=== PATIENT | male | born 1955 | race Caucasian/White ===

== ENCOUNTER 2021-10-07 14:53 | Outpatient (CLI) | payer MEDICARE ==
[2021-10-07 16:08] LABS: Hemoglobin 13.2 g/dL (13.5-17.5); Mean Corpuscular HGB CONC 33.9 g/dL (32.0-36.0); Mean Corpuscular Hemoglobin 30.1 pg (27.0-33.0); Mean Corpuscular Volume 88.8 fl (81.2-95.1); Mean Platelet Volume 9.4 fl (7.4-10.4); Platelet Count 235 10x3/uL (150-450); Red Blood Cell (RBC) Count 4.38 10x6/uL (4.32-5.72); White Blood Cell (WBC) Count 6.8 10x3/uL (3.5-10.5)
[2021-10-07 16:20] LABS: INR-International Normal Ratio 0.9; PTT 28.8 sec (22.0-33.0); Prothrombin Time 10.3 sec (9.5-12.1)
[2021-10-07 16:27] LABS: Anion Gap 15 mmol/L (10-20); BUN (Urea Nitrogen) 17 mg/dL (8.4-25.7); Calc. Creatinine Clearance 0 mL/min (70-130); Calcium 8.9 mg/dL (7.8-10.44); Carbon Dioxide 24 mmol/L (23-31); Chloride 107 mmol/L (98-107); Glucose 134 mg/dL (80-115); Potassium 4.2 mmol/L (3.5-5.1); Sodium 142 mmol/L (136-145)
== END 2021-10-07 14:54 | disposition home or self-care (01) ==
LOC: CSHLAB 14:53
PROVIDERS: ATTEND Orthopaedic Surgery
DX: Z01.818 Encounter for other preprocedural examination (principal); Z20.822 Contact with and (suspected) exposure to COVID-19; M46.1 Sacroiliitis, not elsewhere classified
CPT/HCPCS: 80048; 85027; 85610; 85730; 93005; 93010; U0003; U0005

== ENCOUNTER 2021-10-12 06:02 | Day surgery (SDC) | payer MEDICARE ==
[2021-10-07 14:22] VITALS: BMI 34.9
[2021-10-12] MEDS ORDERED: Lidocaine 1% MPF 2 ML VIAL ONE (06:49)
[2021-10-12] MEDS ORDERED: Bupivacaine 0.25% HCL 30 ML VIAL ONE (07:03)
[2021-10-12] MEDS ORDERED: EPINEPHrine 1 MG/ML AMP ONE (07:03)
[2021-10-12] MEDS ORDERED: Famotidine/PF 20 mg/2ml Vial ONE (07:30)
[2021-10-12] MEDS ORDERED: PROPOFOL 20 ML ONE (07:57)
[2021-10-12] MEDS ORDERED: Rocuronium Bromide 10 MG/ML (10ML VIAL) ONE ×2 (07:57→07:58)
[2021-10-12] MEDS ORDERED: Ondansetron PF 4 MG/2 ML Vial ONE (07:57)
[2021-10-12] MEDS ORDERED: Fentanyl 100 MCG/2 ML VIAL ONE ×3 (07:57→10:48)
[2021-10-12] MEDS ORDERED: Lidocaine 1% PF 5 ML VIAL ONE (07:57)
[2021-10-12] MEDS ORDERED: CEFAZOLIN 1 GM VIAL ONE (08:00)
[2021-10-12] MEDS ORDERED: Lidocaine 2% Jelly 5 ML TUBE ONE (08:01)
[2021-10-12] MEDS ORDERED: Propofol 1,000 MG/100 ML VIAL IV ONE (08:02)
[2021-10-12] MEDS ORDERED: ePHEDrine Sulfate 50 MG/10 ML VIAL ONE (08:43)
[2021-10-12] MEDS ORDERED: PHENYLEPHRINE-NS 100 MCG/ML 10 ML SYRINGE ONE ×2 (08:44→10:06)
[2021-10-12] MEDS ORDERED: Glycopyrrolate 0.2 MG/ML 5 ML SYRINGE ONE (09:55)
[2021-10-12] MEDS ORDERED: HYDROcodone/Acetaminophen 10/325 mg Tablet PO PRN ×2 (10:03→10:06)
[2021-10-12] MEDS ORDERED: Morphine 4 MG/ML VIAL SLOW IVP PRN (10:03)
[2021-10-12] MEDS ORDERED: Non-Formulary Medication 1 EACH (Fluticasone Propionate [Flovent Diskus] 50 MCG Blst.W.Dev NASAL PRN (10:06)
[2021-10-12] MEDS ORDERED: [UNRECOGNIZED DRUG - REMARK] PO PRN (10:06)
[2021-10-12] MEDS ORDERED: Nitroglycerin 0.4 MG TAB (25 Tab Bottle) SL PRN (10:06)
[2021-10-12] MEDS ORDERED: LEVALBUTEROL TARTRATE INH PRN (10:06)
[2021-10-12] MEDS ORDERED: Arformoterol 15 MCG/2 ML NEB NEB PRN (10:06)
[2021-10-12] MEDS ORDERED: Ketorolac Tromethamine 30 MG/ML VIAL ONE (10:07)
[2021-10-12] MEDS ORDERED: Communication Order-Pharmacy FS SCH (10:15)
[2021-10-12] MEDS ORDERED: ceFAZolin 2 GM/Dextrose 50 ML 2 GM in Premix Bag 1 BAG IVPB SCH (10:15)
[2021-10-12] MEDS ORDERED: HYDROcodone/Acetaminophen 10/325 mg Tablet ONE (11:38)
[2021-10-12] MEDS ORDERED: Aspirin 81 mg Enteric Coated Tablet PO SCH (21:00)
[2021-10-12] MEDS ORDERED: PREGABALIN 100 MG PO SCH (21:00)
[2021-10-12] MEDS ORDERED: RANOLAZINE 1000 MG PO SCH (21:00)
[2021-10-12] MEDS ORDERED: Non-Formulary Medication 1 EACH (Omeprazole [Omeprazole] 40 MG Capsule.Dr) PO SCH (21:00)
[2021-10-12] MEDS ORDERED: Ascorbic Acid 500 mg Chewable Tablet PO SCH (21:00)
[2021-10-12] MEDS ORDERED: Non-Formulary Medication 1 EACH (Pravastatin Sodium [Pravastatin Sodium] 80 MG Tablet) PO SCH (21:00)
[2021-10-12] MEDS ORDERED: metFORMIN 500 MG TAB PO SCH (21:00)
[2021-10-13] MEDS ORDERED: Aspirin 81 mg Enteric Coated Tablet PO SCH (09:00)
[2021-10-13] MEDS ORDERED: MULTIVITAMIN PO SCH (09:00)
[2021-10-13] MEDS ORDERED: Levothyroxine Sodium 50 MCG TAB PO SCH (09:00)
== END 2021-10-12 12:40 | disposition home or self-care (01) ==
LOC: CSHSDC 06:02
PROVIDERS: ATTEND Orthopaedic Surgery
PROC: 0SG Lower Joints, Fusion (ICD-10-PCS; principal; 2021-10-12)
DX: M46.1 Sacroiliitis, not elsewhere classified (principal); I25.10 Atherosclerotic heart disease of native coronary artery without angina pectoris; I10 Essential (primary) hypertension; E11.9 Type 2 diabetes mellitus without complications; Z79.02 Long term (current) use of antithrombotics/antiplatelets; Z79.82 Long term (current) use of aspirin; Z79.84 Long term (current) use of oral hypoglycemic drugs; Z79.890 Hormone replacement therapy; Z79.899 Other long term (current) drug therapy; Z88.0 Allergy status to penicillin; Z88.1 Allergy status to other antibiotic agents; Z88.2 Allergy status to sulfonamides; Z88.8 Allergy status to other drugs, medicaments and biological substances; Z91.018 Allergy to other foods; Z91.041 Radiographic dye allergy status; Z95.5 Presence of coronary angioplasty implant and graft
CPT/HCPCS: 72202; C1713; C1889; J0171; J0690; J1885; J2405; J2704; J3010; S0020; S0028

== ENCOUNTER 2021-12-07 12:32 | Outpatient (CLI) | payer MEDICARE | END 2021-12-07 12:33 | disposition home or self-care (01) | LOC: CSHMRI 12:32 | PROVIDERS: ATTEND Orthopaedic Surgery | DX: M25.511 Pain in right shoulder (principal); M75.121 Complete rotator cuff tear or rupture of right shoulder, not specified as traumatic; S46.811A Strain of other muscles, fascia and tendons at shoulder and upper arm level, right arm, initial encounter ==